=== PATIENT | female | born 1985 | race Caucasian/White ===

== ENCOUNTER 2017-01-30 | Inpatient (IN) | payer BC ==
[2017-01-30] MEDS ORDERED: LIDOCAINE HCL 50 ML VIAL PERI PRN (00:06)
[2017-01-30] MEDS ORDERED: OXYTOCIN/DEXTROSE 5%-WATER 30 UNITS/500 ML BAG IV ONE (00:06)
[2017-01-30] MEDS ORDERED: ONDANSETRON HCL/PF 2 MG/ML VIAL IV PRN ×3 (00:06→23:23)
--- NOTE | 2017-01-30 09:14 | PN ---
Progess Note - Interim Narrative: 01/30/17 09:12 Patient tolerating her contractions well Vital signs stable. Pitocin at if teen mu/min. FHT: 140 baseline, reassuring Contractions q 2-4 min Cervix: 3-4/90/0, AROM-clear Impression: Intrauterine at 40 3/7 week weeks induction of labor for postdates Plan: Continue present plan
[2017-01-30] MEDS: RINGERS SOLUTION,LACTATED 1,000 ML IV ONE ×2 (09:50→17:44)
[2017-01-30] MEDS ORDERED: NALOXONE HCL 1 MG/1 ML SYRG IV PRN (09:56)
[2017-01-30] MEDS ORDERED: BUPIVACAINE HCL/0.9 % NACL/PF 250 ML EP PRN (09:56)
[2017-01-30] MEDS ORDERED: BUPIVACAINE HCL/PF 30 ML VIAL EP SCH (10:00)
--- NOTE | 2017-01-30 10:37 | OR ---
Anesthesia Procedure Note - Anesthesia Procedure Note Date of Service: 01/30/17 Narrative: Vital Signs - Last Taken Temp Pulse 80 01/30/17 10:04 Resp 20 01/30/17 10:04 BP 120/71 01/30/17 10:04 Pulse Ox 94 01/30/17 10:04 01/30/17 10:37 ANESTHESIA PROCEDURE NOTE Date of Procedure: 01/30/2017. Time of procedure: 1010. Performed by: Sky Jimenez CRNA Hospice Executive Director: None. Preprocedure diagnosis: Active labor. Post procedure diagnosis: Same. Procedure: Insertion of labor epidural. Indications: The patient is a 31 -year-old female in active labor requesting labor epidural for pain management. Findings: See below. Details of the procedure: The patient was placed in a sitting position. DuraPrep as well as Betadine swabs 3 was applied to the patient's back. Patient was then draped in a sterile fashion. Lidocaine 1% was infiltrated to the skin and subcutaneous tissues at the level of the L3 4 interspace. The epidural space was identified using a 18-gauge Tuohy needle with loss-of- resistance technique. Epidural catheter was inserted to a depth of 10 centimeters at skin. Negative test dose was elicited using 3 mL of 1.5% preservative-free lidocaine plus epinephrine 1 200,000. The epidural catheter was then taped and secured in place. A loading dose of 8 mL of 0.25% preservative-free bupivacaine was administered to the epidural catheter after negative aspiration for blood and CSF. EBL: Minimal. Fluids: N/A. Specimen: N/A. Post procedure condition: The patient tolerated the procedure well. No complications were noted. Thank you for this consultation. Sky Jimenez CRNA
[2017-01-30] MEDS: DEXTROSE 5%-LACTATED RINGERS 1,000 ML IV PRN ×3 (10:52→19:50)
--- NOTE | 2017-01-30 16:32 | PN ---
Progess Note - Interim Narrative: 01/30/17 16:29 Patient comfortable with epidural Vital signs stable. Pitocin at 15 mu/min. FHT: 180 baseline, decreased beat to beat variability and occasional variable deceleration and occasional late deceleration. Contractions q 2-3 min Cervix: 8/90/0 Impression: Intrauterine at 40 3/7 weeks induction of labor for postdates Plan: Pitocin turned off, patient repositioned, cervix easily stretched over the head so the patient now is rim/+1 with baby in OP presentation. We'll continue position changes to give baby to turn and anticipate normal spontaneous vaginal delivery soon.
--- NOTE | 2017-01-30 21:25 | PN ---
Garth Note - Interim Narrative: 01/30/17 21:19 Indication: Maternal exhaustion Pre Procedure Patient was counseled to the risk, benefits, and alternatives to operative vaginal delivery. All questions were answered. Patient consented to proceed with operative vaginal delivery. heart rate interpretation: 160 baseline with good beat to beat variability and accelerations, EFW 3700 g, station +2, Position of head ESMER, Anesthesia: epidural Cervix was completely dilated and effaced, maternal- size appropriate for application, bladder was emptied, flexion point identified, cup choice appropriate for application site, maternal tissue excluded from vacuum cup Procedure Total application time of the Kiwi Pro with Palm Pump was 2 minutes, maximum vacuum achieved was 500 mm Hg, number of pulls 3 (4 counting the early release pop off), number of involuntary releases 1, vacuum reduced between contractions , advancement in station with each pull, degree of rotation 0-45 Post Procedure Fetus undelivered. Risks, benefits, and alternatives to section discussed with patient and spouse again. We'll proceed with primary low transverse section for arrest of descent.
[2017-01-30] MEDS ORDERED: OXYTOCIN 20 UNITS in RINGERS SOLUTION,LACTATED 1,000 ML IV ONE ×2 (21:26→23:23)
[2017-01-30] MEDS ORDERED: ceFAZolin SODIUM/DEXTROSE,ISO 2 GM/50 ML BAG IV ONE (21:26)
[2017-01-30] MEDS ORDERED: RINGERS SOLUTION,LACTATED 1,000 ML IV PRN ×2 (21:26)
[2017-01-30] MEDS ORDERED: RINGERS SOLUTION,LACTATED 1,000 ML IV ONE ×3 (22:00→23:23)
[2017-01-30] MEDS ORDERED: GLYCERIN/WITCH HAZEL LEAF 40 APPL BOX TP PRN (23:23)
[2017-01-30] MEDS ORDERED: SIMETHICONE 80 MG TAB.CHEW PO PRN (23:23)
[2017-01-30] MEDS ORDERED: BENZOCAINE/MENTHOL 81 SPRAY CAN TP PRN (23:23)
[2017-01-30] MEDS ORDERED: SENNOSIDES 8.6 MG TABLET PO PRN (23:23)
[2017-01-30] MEDS ORDERED: oxyCODONE HCL/ACETAMINOPHEN 1 TAB TABLET PO PRN (23:23)
[2017-01-30] MEDS ORDERED: BISACODYL 10 MG SUPP.RECT RC PRN (23:23)
--- NOTE | 2017-01-30 23:27 | OR ---
Operative Report - Dictated Report Narrative: Pre Operative Diagnosis: 40 3/7 week intrauterine , arrest of descent Post Operative Diagnosis: Same. Procedure Preformed: Primary Low Transverse Section Surgeon: Aneslmo Yan DO Cadmium Burner: OR Staff Anesthesia: Epidural ,TAP block Estimated Blood Loss: 700 mL Urine Output: 500 mL Fluids Given: 1500 mL Drains: Bhatt to gravity Surgical Complications: None Specimens: Placenta to freezer Findings: Female in cephalic presentation born at 2223 on 01/30/2017 with Apgars 9 and 9, weighing 4208 g. Normal uterus, tubes, ovaries. Indication: 31-year-old 1 para 0 admitted today for induction of labor due to postdates. Patient progressed to complete dilation and pushed for over 3 hours with no descent despite attempt at vacuum-assisted delivery. Technique: The patient was taken to the operating room and placed in dorsal supine position with a left lateral tilt. After adequate epidural anesthesia, bhatt catheter insertion,SCDs placed, and 2 g of Ancef given preoperatively, the abdominal cavity was entered via a modified David-Meredith incision. Two rolled laps were placed in the pericolic gutters on either side of the uterus. A transverse incision was made in the lower uterine segment and extended laterally and upwardly with digital traction. Clear fluid was noted upon amniotomy. The was delivered easily. The cord was clamped and cut and infant was handed off to awaiting field sales engineer. The placenta was allowed to deliver spontaneously. The uterus was cleared of clot and debris. Uterine incision was closed with 0 Vicryl using a running stitch. A second imbricating layer was placed. Excellent hemostasis was noted. Rolled laps were removed from the abdominal cavitiy. The peritoneum was closed with a running 3-0 Monocryl. The same suture was used to approximate the rectus and pyramidalis muscles. The fascia was closed with a running 0 Vicryl. The subcutaneous layer was closed with a running 3-0 Monocryl. The same suture was used to approximate the subdermal layer. The skin was closed with a running 4-0 Monocryl and Dermabond. Sponge, lap, needle, and instrument count were correct x 2. Disposition: The patient was transferred to post anesthesia care unit in good condition
[2017-01-31] MEDS: IBUPROFEN 800 MG TABLET PO PRN ×4 (00:04→22:07)
[2017-01-31] MEDS: oxyCODONE HCL/ACETAMINOPHEN 1 TAB TABLET PO PRN ×7 (00:04→22:07)
[2017-01-31] MEDS: ENOXAPARIN SODIUM 40 MG/0.4 ML SYRG SC SCH (07:22)
[2017-01-31] MEDS: PRENATAL VIT#96/FERROUS FUM/FA 1 TAB TABLET PO SCH (11:29)
[2017-01-31] MEDS: FERROUS SULFATE 325 MG TABLET PO SCH (11:29)
[2017-01-31] MEDS: DOCUSATE SODIUM 100 MG CAPSULE PO SCH ×2 (11:29→21:36)
[2017-01-31] MEDS ORDERED: RHO(D) IMMUNE GLOBULIN 300 MCG DISP.SYRIN IM ONE (13:07)
--- NOTE | 2017-01-31 13:07 | PN ---
Subjective - Date and Time Seen Date: 01/31/17 Time: 13:06 Objective - Vitals Vitals: Last Vital Signs Temp 36.7 C 01/31/17 11:41 Pulse 77 01/31/17 11:41 Resp 18 01/31/17 11:41 BP 102/61 01/31/17 11:41 Pulse Ox 97 01/31/17 11:41 Patient denies complaints. Tolerating regular diet. Ambulating without difficulty. Pain well controlled. Lochia wnl. Abdomen - soft, appropriately tender Incision - clean, dry, intact Uterus - firm, at umbilicus -1 No calf tenderness Impression: Post op day #1 s/p primary section for arrest of descent. Plan: Continue routine post-operative/ care Cauti Physician Documentation - Urinary Catheter Management Urethral (Wade) Date of Insertion: 01/30/17 Time of Insertion: 11:00
[2017-02-01] MEDS: oxyCODONE HCL/ACETAMINOPHEN 1 TAB TABLET PO PRN ×4 (04:32→23:10)
[2017-02-01] MEDS: IBUPROFEN 800 MG TABLET PO PRN ×3 (04:32→18:26)
[2017-02-01] MEDS: DOCUSATE SODIUM 100 MG CAPSULE PO SCH ×2 (08:21→21:03)
[2017-02-01] MEDS: FERROUS SULFATE 325 MG TABLET PO SCH (08:21)
[2017-02-01] MEDS: ENOXAPARIN SODIUM 40 MG/0.4 ML SYRG SC SCH (08:22)
[2017-02-01] MEDS: PRENATAL VIT#96/FERROUS FUM/FA 1 TAB TABLET PO SCH (08:56)
--- NOTE | 2017-02-01 10:39 | PN ---
Subjective - Date and Time Seen Date: 02/01/17 Time: 10:38 Objective - Vitals Vitals: Last Vital Signs Temp 36.7 C 02/01/17 09:02 Pulse 66 02/01/17 09:02 Resp 18 02/01/17 09:02 BP 118/73 02/01/17 09:02 Pulse Ox 97 02/01/17 09:02 Patient denies complaints. Tolerating regular diet. Ambulating without difficulty. Pain well controlled. Lochia wnl. Abdomen - soft, appropriately tender Incision - clean, dry, intact Uterus - firm, at umbilicus -1 No calf tenderness Impression: Post op day #1 s/p primary section. Plan: Continue routine post-operative/ care Cauti Physician Documentation - Urinary Catheter Management Urethral (Wade) Date of Insertion: 01/30/17 Time of Insertion: 11:00
[2017-02-02] MEDS: IBUPROFEN 800 MG TABLET PO PRN ×2 (01:59→08:34)
[2017-02-02 06:38] VITALS: BP 111/66
[2017-02-02] MEDS: oxyCODONE HCL/ACETAMINOPHEN 1 TAB TABLET PO PRN (08:33)
[2017-02-02] MEDS: ENOXAPARIN SODIUM 40 MG/0.4 ML SYRG SC SCH (08:33)
[2017-02-02] MEDS: DOCUSATE SODIUM 100 MG CAPSULE PO SCH (08:34)
[2017-02-02] MEDS: PRENATAL VIT#96/FERROUS FUM/FA 1 TAB TABLET PO SCH (08:34)
[2017-02-02] MEDS: FERROUS SULFATE 325 MG TABLET PO SCH (08:34)
--- NOTE | 2017-02-02 09:22 | PN ---
Subjective - Date and Time Seen Date: 02/02/17 Time: 09:21 Objective - Vitals Vitals: Last Vital Signs Temp 36.3 C L 02/02/17 06:35 Pulse 59 L 02/02/17 06:35 Resp 18 02/02/17 06:35 BP 111/66 02/02/17 06:35 Pulse Ox 97 02/02/17 06:35 Patient denies complaints. Ambulating without difficulty. Tolerating regular diet. Pain well controlled. Lochia wnl. Abdomen - soft, appropriately tender Incision - clean, dry, intact Uterus - firm, at umbilicus -3 No calf tenderness Impression: Post op day #3 s/p primary section. Plan: Routine discharge instructions Cauti Physician Documentation - Urinary Catheter Management Urethral (Wade) Date of Insertion: 01/30/17 Time of Insertion: 11:00
== END 2017-02-02 14:00 | disposition home or self-care (01) | DRG 766 ==
LOC: OB
PROVIDERS: ADMIT Obstetrics & Gynecology; ATTEND Obstetrics & Gynecology
PROC: 10907ZC Drainage of Amniotic Fluid, Therapeutic from Products of Conception, Via Natural or Artificial Opening (ICD-10-PCS; 2017-01-30)
PROC: 3E033VJ Introduction of Other Hormone into Peripheral Vein, Percutaneous Approach (ICD-10-PCS; 2017-01-30)
PROC: 4A1HXCZ Monitoring of Products of Conception, Cardiac Rate, External Approach (ICD-10-PCS; 2017-01-30)
PROC: 10D00Z1 Extraction of Products of Conception, Low, Open Approach (ICD-10-PCS; principal; 2017-01-30 22:00)
DX: O32.4XX0 Maternal care for high head at term, not applicable or unspecified (principal); O62.1 Secondary uterine inertia; O75.81 Maternal exhaustion complicating labor and delivery; O48.0 Post-term pregnancy; O66.5 Attempted application of vacuum extractor and forceps; Z3A.40 40 weeks gestation of pregnancy; Z37.0 Single live birth
CPT/HCPCS: 59025; 59510; 85460; J2790

== ENCOUNTER 2018-09-10 10:31 | Inpatient (IN) ==
[2018-09-10] MEDS ORDERED: ceFAZolin SODIUM/DEXTROSE,ISO 2 GM/50 ML BAG IV ONE (10:36)
[2018-09-10] MEDS ORDERED: RINGER'S SOLUTION,LACTATED 1,000 ML IV PRN (10:36)
[2018-09-10] MEDS ORDERED: OXYTOCIN 20 UNITS in RINGER'S SOLUTION,LACTATED 1,000 ML IV ONE (10:37)
[2018-09-10] MEDS: RINGER'S SOLUTION,LACTATED 1,000 ML IV PRN ×2 (10:58→11:55)
--- NOTE | 2018-09-10 11:59 | ANES ---
Anesthesia Pre Procedure Eval Vitals/Labs: Last Vital Signs Temp 36.3 C 09/10/18 11:25 Pulse 86 09/10/18 11:25 Resp 18 09/10/18 11:25 BP 129/75 09/10/18 11:25 Pulse Ox 99 09/10/18 11:25 HOME MEDICATIONS Vits96/Iron Fum/Folic [ S] 1 tab PO DAILY 01/30/17 [Last Taken 09/09/18] hydroxyzine pamoate 25 mg capsule 25 mg PO Q4H PRN #40 cap 05/12/18 [Last Taken Unknown] Allergies/Adverse Reactions: Allergies Allergy/AdvReac Type Severity Reaction Status Date / Time codeine Allergy Rash Verified 09/10/18 10:45 - Planned Procedure Planned Procedure: Repeat Section poss abdominal scar revisi Medication List Reviewed:: Yes Allergies Verified: Yes Medical History (Last Reviewed 09/10/18 @ 11:58 by Mauro Hollins CRNA) Varicose veins during , antepartum Onset Date: ~2016 2016 & 2017 Anemia affecting Onset Date: 10/24/16 Hx of wisdom tooth extraction Mononucleosis Onset Date: 1997 Surgical History (Last Reviewed 09/10/18 @ 11:58 by Mauro Hollins CRNA) Previous section (Chronic) Hx of section Onset Date: 01/30/17 arrest of descent Hx of breast augmentation Onset Date: 2013 Family History (Last Reviewed 09/10/18 @ 11:58 by Mauro Hollins CRNA) Mother Alive and well Grandfather , Maternal Myocardial infarction - Family Anesthesia History Family History:: no untoward family reactions to anesthesia - Airway/Neck/Teeth Within Normal Limits:: Yes Teeth Condition: intact Neck Exam: full range of motion Mallampatti Score: 1 Thyromental (T-M) distance: > 6 cm Mandibulo Hyoid distance: > 3 cm - Respiratory Respiratory Physical: lungs clear Smoking Status: Never smoker Sleep Apnea currently treated: No Sleep Apnea by current assessment: No - Cardiovascular Tolerate Activity: Good Heart Sounds: S1 & S2, Regular - Anesthesia Assessment and Plan ASA Class: PS, II Anesthesia Type Plan: Spinal - Bilat TAP block for postop analgesia
--- NOTE | 2018-09-10 13:26 | OR ---
Operative Report - Dictated Report Narrative: Indication: 33-year-old 2 para 1 at 38-5/7 weeks with prior section presents to the office in active labor. status: Planned Pre Operative Diagnosis: Intrauterine at 38-5/7 weeks, prior section, labor, keloid formation on abdominal scar Post Operative Diagnosis: Same. Procedure: Repeat low transverse section. Abdominal scar revision - 16cm Surgeon: Anselmo Yan DO Patient Services Clerk: OR Staff Anesthesia: Spinal, TAP block Estimated Blood Loss: 400 mL Urine Output: 325 mL clear urine Fluids Replacement: 1700 mL Drains: Bhatt to gravity Surgical Complications: None Specimens: Placenta to freezer Findings: Male born at 1231 on 09/10/2018 with Apgars 9 and 9, weighing 3507 g in cephalic presentation. Normal uterus, tubes, ovaries Technique: The patient was taken to the operating room and placed in dorsal supine position with a left lateral tilt. After adequate spinal anesthesia, bhatt catheter inserted, SCDs placed, and 2 g of Ancef given preoperatively, the previous scar was excised in an elliptical fashion and the abdominal cavity was entered using sharp and blunt dissection. Two rolled laps were placed in the pericolic gutters on either side of the uterus. A transverse incision was made in the lower uterine segment and extended laterally and upwardly with digital traction. Clear fluid was noted upon amniotomy. The infant was delivered easily, crying immediately once head presented from the hysterotomy. The cord was clamped and cut and was handed off to awaiting filling hauler. The placenta was allowed to deliver spontaneously. The uterus was cleared of clot a nd debris. Uterine incision was closed with 0 Vicryl using a running stitch. A second imbricating layer was placed. Excellent hemostasis was noted. The rolled laps were removed from the abdominal cavitiy. The peritoneum was closed with a running 3-0 Monocryl. The same suture was used to approximate the rectus and pyramidalis muscles. The fascia was closed with a running 0 Vicryl. The subcutaneous layer was closed with a running 3-0 Monocryl. The same suture was used to approximate the subdermal layer. The skin was closed with a running 4-0 Monocryl and Dermabond. Sponge, lap, needle, and instrument count were correct x 2. Disposition: To post anesthesia care unit in good condition
--- NOTE | 2018-09-10 13:27 | PN ---
Progess Note - Interim Date: 09/10/18 Time: 13:26 History for MU Definition: * The number of deliveries resulting in a live the patient experienced prior to current hospitalization * The previous delivery of live twins or any live multiple gestation is considered one live event. *If primagravida or nulliparous is documented select zero for the number of previous live births. Live Events: 1
--- NOTE | 2018-09-10 13:48 | ANES ---
Post Anesthesia Discharge - Transfer of Care Transfer of Care handoff given to nurse: Yes - Discharge from PACU Discharge from PACU when meets criteria: Yes
--- NOTE | 2018-09-10 13:48 | ANES ---
Post Anesthesia Assessment - Vital Signs Vitals: Last Vital Signs Temp 36.6 C 09/10/18 13:45 Pulse 82 09/10/18 13:45 Resp 17 09/10/18 13:45 BP 116/57 09/10/18 13:45 Pulse Ox 99 09/10/18 13:45 Airway Patency: Normal - Mental Status Level Of Consciousness: Awake - Pain Level Pain Score: 0 - N/V Assessment Nausea/Vomiting Presence: None Dehydration:: No
--- NOTE | 2018-09-10 13:51 | ANES ---
Anesthesia Procedure Note Procedure Note: ANESTHESIA PROCEDURE NOTE Date of procedure:[]. 09/10/2018 Time of procedure:[]. 1335 Performed by: Aren Hollins CRNA Juice Scaleman: [] Shirin Piña RN . Preprocedure diagnosis: []. Status post section. Desire for postoperative analgesia Post procedure diagnosis: Same. Procedure:[] Ultrasound-guided bilateral tap block Indications: []. Postoperative analgesia Findings: [] Patient placed in the supine position in the PACU. Patient's left abdominal wall was prepped with ChloraPrep. Ultrasound was utilized to identify fascial layer between internal oblique and trans-abdominus muscles. A 20-gauge 4 inch regional block needle was advanced under ultrasound guidance until tip of needle was positioned just posterior to fascial layer. 20 mL of 0.25% Marcaine with epinephrine 1 200,000 was injected with adequate spread of local anesthesia noted. Procedure was then repeated on patient's right side. EBL: Minimal. Fluids: N/A. Specimen: N/A. Post procedure condition: The patient tolerated the procedure well. No complications were noted. Thank you for this consultation Aren Hollins CRNA
[2018-09-10] MEDS ORDERED: SIMETHICONE 80 MG TAB.CHEW PO PRN (14:09)
[2018-09-10] MEDS ORDERED: SENNOSIDES 8.6 MG TABLET PO PRN (14:09)
[2018-09-10] MEDS ORDERED: ONDANSETRON HCL/PF 2 MG/ML VIAL IV PRN (14:09)
[2018-09-10] MEDS ORDERED: BISACODYL 10 MG SUPP.RECT RC PRN (14:09)
[2018-09-10] MEDS: oxyCODONE HCL/ACETAMINOPHEN 1 TAB TABLET PO PRN ×4 (14:18→22:49)
[2018-09-10] MEDS: IBUPROFEN 800 MG TABLET PO PRN ×2 (14:18→21:00)
[2018-09-10] MEDS: DOCUSATE SODIUM 100 MG CAPSULE PO SCH (21:00)
[2018-09-10] MEDS: ENOXAPARIN SODIUM 40 MG/0.4 ML SYRG SC SCH (22:48)
[2018-09-11] MEDS: oxyCODONE HCL/ACETAMINOPHEN 1 TAB TABLET PO PRN ×7 (02:00→22:02)
[2018-09-11] MEDS: IBUPROFEN 800 MG TABLET PO PRN ×3 (05:01→18:22)
[2018-09-11] MEDS: DOCUSATE SODIUM 100 MG CAPSULE PO SCH ×2 (08:15→22:02)
--- NOTE | 2018-09-11 13:26 | PN ---
Subjective - Date and Time Seen Date: 09/11/18 Time: 13:21 Objective - Vitals Vitals: Last Vital Signs Temp 36.6 C 09/11/18 07:24 Pulse 76 09/11/18 07:24 Resp 18 09/11/18 07:24 BP 103/61 09/11/18 07:24 Pulse Ox 98 09/11/18 05:00 Patient denies complaints. Tolerating regular diet. Ambulating without difficulty. Pain well controlled. Breast-feeding Lochia wnl. Abdomen - soft, appropriately tender Incision - clean, dry, intact Uterus - firm, at umbilicus -1 No calf tenderness Impression: Post op day #1 s/p repeat section. Bilateral salpingectomy. Abdominal scar revision Plan: Continue routine post-operative/ care Cauti Physician Documentation - Urinary Catheter Management Urethral (Wade) Date of Insertion: 09/10/18 Time of Insertion: 12:15
[2018-09-11] MEDS ORDERED: RHO(D) IMMUNE GLOBULIN 1,500 UNIT SYRINGE IM ONE (17:54)
[2018-09-11] MEDS: ENOXAPARIN SODIUM 40 MG/0.4 ML SYRG SC SCH (22:02)
[2018-09-12] MEDS: oxyCODONE HCL/ACETAMINOPHEN 1 TAB TABLET PO PRN ×5 (01:33→20:01)
[2018-09-12] MEDS: IBUPROFEN 800 MG TABLET PO PRN ×3 (03:30→20:02)
--- NOTE | 2018-09-12 05:47 | PN ---
Subjective - Date and Time Seen Date: 09/12/18 Time: 05:47 Objective - Vitals Vitals: Last Vital Signs Temp 36.6 C 09/12/18 03:35 Pulse 74 09/12/18 03:35 Resp 17 09/12/18 03:35 BP 102/59 09/12/18 03:35 Pulse Ox 96 09/12/18 03:35 Patient denies complaints. Ambulating well. Tolerating regular diet. Pain well controlled. Breast-feeding well Lochia wnl. Abdomen - soft, appropriately tender Incision - clean, dry, intact Uterus - firm, at umbilicus -2 No calf tenderness Impression: Post op day #2 s/p repeat section. Abdominal scar revision Plan: Continue routine post-operative/ care Cauti Physician Documentation - Urinary Catheter Management Urethral (Wade) Date of Insertion: 09/10/18 Time of Insertion: 12:15
[2018-09-12] MEDS: DOCUSATE SODIUM 100 MG CAPSULE PO SCH ×2 (09:49→20:02)
[2018-09-13] MEDS: ENOXAPARIN SODIUM 40 MG/0.4 ML SYRG SC SCH (00:24)
[2018-09-13] MEDS: oxyCODONE HCL/ACETAMINOPHEN 1 TAB TABLET PO PRN ×4 (03:03→14:16)
[2018-09-13] MEDS: IBUPROFEN 800 MG TABLET PO PRN ×2 (03:04→08:57)
[2018-09-13] MEDS: DOCUSATE SODIUM 100 MG CAPSULE PO SCH ×2 (07:30→09:46)
[2018-09-13 08:31] VITALS: BP 136/68
--- NOTE | 2018-09-13 09:33 | PN ---
Subjective - Date and Time Seen Date: 09/13/18 Time: 09:32 Objective - Vitals Vitals: Last Vital Signs Temp 36.4 C 09/13/18 07:45 Pulse 71 09/13/18 07:45 Resp 20 09/13/18 07:45 BP 136/68 09/13/18 07:45 Pulse Ox 97 09/13/18 07:45 Patient denies complaints. Ambulating without difficulty. Tolerating regular diet. Pain well controlled. Breast feeding well Lochia wnl. Abdomen - soft, appropriately tender Incision - clean, dry, intact Uterus - firm, at umbilicus -3 No calf tenderness Impression: Post op day #3 s/p repeat section with abdominal scar revision. Plan: Routine discharge instructions Cauti Physician Documentation - Urinary Catheter Management Urethral (Wade) Date of Insertion: 09/10/18 Time of Insertion: 12:15
== END 2018-09-13 14:30 | disposition home or self-care (01) | DRG 787 ==
LOC: OB 10:31
PROVIDERS: ADMIT Obstetrics & Gynecology; ATTEND Obstetrics & Gynecology
CPT/HCPCS: 59025; 64486; 85460; J2790